=== PATIENT | male | born 1950 | race Caucasian/White ===

== ENCOUNTER → 2022-06-21 16:08 | Outpatient (CLI) | payer OTHER, SELFPAY ==
--- NOTE | ~2022-06-21 | XR_ITS ---
EXAMINATION: XR chest 2V DATE: 06/21/2022 16:22 INDICATION: Dyspnea, unspecified. TECHNIQUE: Frontal and lateral views of the chest were obtained. COMPARISON: None. FINDINGS: There is mild elevation of right hemidiaphragm. No pneumonia, pleural effusion, or pneumoth orax. The heart size is normal. There are changes of anterior fusion procedures cervical spine. There are suture anchors in right humeral head. IMPRESSION: 1. Mild elevation of right hemidiaphragm. Reviewed, dictated and finalized at location B.
== END ==
PROVIDERS: PCP Family Medicine Adolescent Medicine; Visit Provider Family Medicine Adolescent Medicine
DX: R06.00 Dyspnea, unspecified (principal)
CPT/HCPCS: 71046